=== PATIENT | male | born 1980 | race Caucasian/White ===

== ENCOUNTER 2017-07-24 14:31 | Emergency (ER) | payer BC ==
--- NOTE | 2017-07-24 15:13 | EDM.PDOC ---
ED HPI GENERAL MEDICAL PROBLEM - General Chief Complaint: General Stated Complaint: RIGHT TOOTH IN MOUTH IN PAIN Time Seen by Provider: 07/24/17 14:55 - History of Present Illness INITIAL COMMENTS - FREE TEXT/NARRATIVE: HISTORY AND PHYSICAL: History of present illness: The patient is a 37-year-old male who presents for 2 complaints--- the first is that he got hit with a piece of equipment on the right side of his mouth and upper central incisor and has a laceration inside the lip as well as some crusting of the blood on the outside. He says that his right central incisor feels a little discomforting but is not grossly loose. He did not pass out or blackout and he says that this is not the primary reason why he came here but wanted that evaluated because he is worried it might get infected. He has no other facial injuries. 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 The patient said he was treated with doxycycline and actually has a copy of his sensitivities for the last time he had a drainage performed none of which include doxycycline. He is concerned because he has had some drainage from an area behind his left ear as well as on his scrotum over the last several days. He has no systemic complaints and has no testicular pain or swelling. His physician is not here locally. Review of systems: As per history of present illness and below otherwise all systems reviewed and negative. Past medical history: As per history of present illness and as reviewed below otherwise noncontributory. Surgical history: As per history of present illness and as reviewed below otherwise noncontributory. Social history: No reported history of drug or alcohol abuse. Family history: As per history of present illness and as reviewed below otherwise noncontributory. Physical exam: Gen.: Well-developed well-nourished man who is nontoxic and speaking clearly and easily in the ED. He has no facial swelling. On his external upper lip there is a small scab-like areas seen without lip swelling. HEENT: Atraumatic, normocephalic, pupils reactive, there is no maxillary or mandibular tenderness and bite is normal. There is some minimal tenderness at the inner aspect of the upper lip where there is a superficial laceration seen and there is some tenderness at tooth #8 but there is no gross subluxation or tooth injury. There is no orbital or facial bone tenderness, negative for conjunctival pallor or scleral icterus, mucous membranes moist, throat clear, neck supple, nontender, trachea midline. In the posterior auricular area bilaterally there is dense scar tissue from prior incision and drainages but no erythema or tenderness. There is a small nodular area at the left auricular area which seems more indurated and not erythematous and there is no fluctuance or drainage. Lungs: Clear to auscultation, breath sounds equal bilaterally, chest nontender. Heart: S1S2, regular rate and rhythm no overt murmurs Abdomen: Soft, nondistended, nontender. NABS Pelvis: Stable nontender. Genitourinary: Testicles are descended bilaterally and there is no swelling or tenderness appreciated and there are multiple areas of nodular scar tissue appreciated on the scrotal skin and there was one small pustule the patient expressed some pus from. Is no erythema of the skin. Rectal: Deferred. Extremities: Atraumatic, negative for cords or calf pain. Neurovascular unremarkable. Neuro: Awake, alert, oriented. Cranial nerves II through XII unremarkable. Cerebellum unremarkable. Motor and sensory unremarkable throughout. Exam nonfocal. 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 ED ROS GENERAL - Review of Systems Review Of Systems: ROS reveals no pertinent complaints other than HPI. ED EXAM, GENERAL - Physical Exam Exam: See Below (See dictation) Departure - Departure Time of Disposition: 15:11 Disposition: Home, Self-Care 01 Condition: Good Clinical Impression: Skin infection Lip injury Qualifiers: Encounter type: initial encounter Qualified Code(s): S09.93XA - Unspecified injury of face, initial encounter - Discharge Information Referrals: PCP,None [Primary Care Provider] - Additional Instructions: The following information is given to patients seen in the emergency department who are being discharged to home. This information is to outline your options for follow-up care. We provide all patients seen in our emergency department with a follow-up referral. The need for follow-up, as well as the timing and circumstances, are variable depending upon the specifics of your emergency department visit. If you don't have a primary care physician on staff, we will provide you with a referral. We always advise you to contact your personal physician following an emergency department visit to inform them of the circumstance of the visit and for follow-up with them and/or the need for any referrals to a consulting specialist. The emergency department will also refer you to a specialist when appropriate. This referral assures that you have the opportunity for followup care with a specialist. All of these measure are taken in an effort to provide you with optimal care, which includes your followup. Under all circumstances we always encourage you to contact your private physician who remains a resource for coordinating your care. When calling for followup care, please make the office aware that this follow-up is from your recent emergency room visit. If for any reason you are refused follow-up, please contact the [facility] emergency department at and ask to speak to the emergency department charge nurse. [facility] Primary care- Internal Medicine and Family [address] [address] Please take Bactrim as prescribed for the skin infections and keep areas clean and dry. Please try to avoid manipulation of the tooth as it will make it more loose and rinse her mouth with warm water after each meal to rinse out food debris from the laceration. Keep the outer part of your lip clean and dry with mild soap and water and bacitracin as needed. Please call and follow-up in our clinic for further care and evaluation and return here as needed and as discussed
[2017-07-24 15:14] VITALS: BP 153/77
== END 2017-07-24 15:30 | disposition home or self-care (01) ==
LOC: MW.ED 14:31
DX: S01.511A Laceration without foreign body of lip, initial encounter (principal); N49.2 Inflammatory disorders of scrotum; B95.62 Methicillin resistant Staphylococcus aureus infection as the cause of diseases classified elsewhere; W22.8XXA Striking against or struck by other objects, initial encounter
CPT/HCPCS: 99282; 99283